=== PATIENT | male | born 1985 | race Caucasian/White ===

== ENCOUNTER 2024-05-15 22:56 | Emergency (ER) | payer OTHER, SELFPAY ==
--- NOTE | ~2024-05-15 | CT_ITS ---
EXAMINATION: CT ABDOMEN AND PELVIS WITHOUT CONTRAST CLINICAL INFORMATION: Left flank pain radiating to left lower quadrant. History of stones. COMPARISON: None available. TECHNIQUE: Multidetector volumetric imaging was performed from the superior aspect of the liver through the pubic symphysis. Sagittal and coronal reformatted images were obtained on the technologist's workstation. This CT examination was performed using dose optimization techniques as appropriate, variously including the following: *Automated exposure control *Adjustment of mA and/or kV according to patient size (this includes techniques or standardized protocols for targeted exams where dose is matched to indication/reason for exam; i.e. extremities or head) *Use of iterative reconstruction technique DLP: 663 mGy-cm FINDINGS: LUNG BASES: The lung bases are clear. The heart size is normal. No pericardial or pleural effusion seen. LIVER, GALLBLADDER, AND BILIARY TREE: The liver is normal in size, shape, and attenuation. No focal hepatic lesion or biliary ductal dilatation is present. The gallbladder is unremarkable with no evidence of radiopaque gallstones, gallbladder wall thickening, or obvious pericholecystic inflammatory changes. PANCREAS: Unremarkable. SPLEEN: Unremarkable. ADRENAL GLANDS: Unremarkable. KIDNEYS AND URETERS: The left kidney measures 11 cm in length and right kidney measures 9.5 cm in length.. There is an 8 mm nonobstructive calculi left UPJ with moderate hydronephrosis and slight enlargement of the kidney. BLADDER: Unremarkable. GASTROINTESTINAL TRACT: There is scattered stool and gas seen throughout the colon without any significant distention. The small bowel loops are normal caliber. Appendix is normal caliber. ABDOMINAL WALL: A small umbilical hernia containing fat is noted. LYMPH NODES: Normal. VASCULAR: Unremarkable. PELVIC VISCERA: Unremarkable. OSSEOUS STRUCTURES: No aggressive lytic or sclerotic process seen. CT/CT abdomen pelvis wo IV con IMPRESSION: 1. 8 mm obstructive calculi left UPJ with moderate hydronephrosis. 2. Mild constipation. Fleischner guidelines were followed. Electronically signed by: Joseph Ornelas MD 05/16/2024 08:21 AM [facility]
[2024-05-15 23:47] VITALS: BP 106/71; PULSE 65; RESP 16; TEMP 36.8; O2SAT 97; BMI 38.0
[2024-05-16 00:32] LABS: MANUAL DIFF FLAG NO
[2024-05-16 00:33] LABS: Basophils Percent Auto 0.3 % (0-2); Eosinophils Absolute Auto 0.2 X10*3/uL (0.0-0.4); Eosinophils Percent Auto 1.7 % (0-4); Hematocrit 40.4 % (42.0-52.0); Hemoglobin 14.2 g/dl (14.0-18.0); Imm Gran Abs Auto 0.03 X10*3/uL (0.00-0.03); Imm Gran Pct Auto 0.3 % (0.0-0.4); Lymphocytes Absolute Auto 2.1 X10*3/uL (1.2-4.9); Lymphocytes Percent Auto 20.5 % (20-40); Mean Corpuscular HGB Conc 35.1 g/dl (31.0-36.0); Mean Corpuscular Hemoglobin 29.1 pg (27.0-33.0); Mean Corpuscular Volume 82.8 fL (80.0-98.0); Mean Platelet Volume 9.8 fL (9.4-12.4); Monocytes Absolute Auto 1.2 X10*3/uL (0.1-1.2); Neutrophils Absolute Auto 6.7 x10*3/uL (2.0-8.3); Neutrophils Percent Auto 65.2 % (45-73); Platelet Count 233 X10*3/uL (160-400); Red Blood Count 4.88 X10*6/uL (4.60-5.80); Red Cell Distribution Width 12.3 % (11.0-16.0); White Blood Count 10.2 X10*3/uL (4.8-10.8)
[2024-05-16 00:50] LABS: Alanine Aminotransferase 46 U/L (0-40); Albumin Level 4.3 g/dL (3.5-5.0); Alkaline Phosphatase 108 U/L (39-117); Anion Gap 13 (12-20); Aspartate Amino Transferase 33 U/L (5-37); Bilirubin Total 0.2 mg/dL (0.0-1.0); Blood Urea Nitrogen 18 mg/dL (9-16); Calcium 9.5 mg/dL (8.4-10.2); Carbon Dioxide 25 mmol/L (22-29); Chloride 103 mmol/L (96-108); Creatinine Clr Calc Pharmacy 78.7; Estimated Glomerular Filt Rate > 60; Glucose Random 108 mg/dL (60-115); Lipase 25 U/L (8-78); Potassium 4.3 mmol/L (3.3-5.1); Sodium 137 mmol/L (135-145); Total Protein 7.3 g/dL (6.5-8.0)
[2024-05-16 05:54] VITALS: BP 118/84; PULSE 77; RESP 18; TEMP 36.8; O2SAT 98
[2024-05-16 06:20] LABS: Appearance Urine Clear; Color Urine Yellow; Glucose Urine UA Negative (Negative); Leukocyte Esterase Urine Negative (Negative); Nitrite Urine Negative (Negative); PH 5.5 (5.0-9.0); UMIC TRIGGER UACC YES; Urine Blood Small (1+) (Negative); Urine Ketones Negative (Negative); Urine Protein Negative (Neg-Trace)
[2024-05-16 06:23] LABS: Bacteria Urine None Seen (None Seen); Hyaline Casts Urine 0-2 /LPF (0-2); Squamous Epithelial Cell Urine 0-2 /HPF (0-2); WBC Urine 0-5 /HPF (0-5)
--- NOTE | 2024-05-16 07:06 | ED_ITS ---
HPI - General Adult General Chief complaint: General Medical Stated complaint: Kidney Pain Time Seen by Provider: 05/16/24 06:35 Source: patient, RN notes reviewed and old records reviewed Mode of arrival: ambulatory History of Present Illness ED Provider: Margarette Akbar PA-C [facility] narrative: 38-year-old male with a past medical history of renal stones presenting to ED complaining of left flank pain radiating to left lower quadrant x 1 week worsening last night. Reports pain is intermittent with associated nausea and vomiting today. Denies fever, chills, dysuria/hematuria Related Data Previous Rx's ?Medication ?Instructions ?Recorded ibuprofen 800 mg tablet 800 mg PO Q8H PRN pain #14 tabs 05/16/24 tamsulosin 0.4 mg capsule (Flomax) 0.4 mg PO DAILY #14 caps 05/16/24 Allergies Allergy/AdvReac Type Severity Reaction Status Date / Time No Known Allergies Allergy Verified 05/15/24 23:50 Review of Systems 2 Review of Systems: Yes all other systems are reviewed and are negative Constitutional: Constitutional: Reports as per HPI [facility] Past Medical History Attestation statement: The following information was validated with the patient. Source: old records reviewed Social History Social History Alcohol intake: former Smoked in Last 30 Days: No Use of substances other than those prescribed or required for medical reasons: No Advance Directives: No Advance Directives Information Provided: Yes Do you have a plan to hurt others: No Plan Physical Exam ED Vital Signs: Vital Signs - 24 hr 05/15/24 23:47 05/16/24 05:54 05/16/24 08:46 Temperature 98.3 F 98.2 F 98.0 F Pulse Rate 65 77 69 Respiratory Rate 16 18 18 Blood Pressure 106/71 118/84 108/74 Pulse Oximetry 97 98 97 Oxygen Delivery Method Room Air Room Air Room Air 05/16/24 09:36 05/16/24 10:26 Temperature 97.8 F Pulse Rate 61 Respiratory Rate 16 16 Blood Pressure 125/80 Pulse Oximetry 100 Oxygen Delivery Method Room Air BMI result Body Mass Index 38.0 Const General: cooperative, healthy appearing and no acute distress Orientation/consciousness: patient oriented x3 Limitations: no limitations HENMT Head: Yes normal to inspection and Yes atraumatic Ears: hearing grossly normal bilaterally General nose exam: Normal external nose present Face and sinus: Yes normal facial exam Eyes General: appearance normal, both eyes and all related structures EOM: EOMs intact bilaterally Neck Neck: Yes normal visual inspection and Yes no meningeal signs Resp Effort & Inspection: normal respiratory effort and no respiratory distress Cardio Rate: regular rate GI Inspection: Yes normal to inspection Palpation (GI): Soft to palpation, Tenderness to palpation present (GI) in the LLQ; with no rebound tenderness, no guarding and not rigid General: Yes CVA tenderness on the left Back/Spine/Pelvis Back: CVA tenderness Skin Rashes: no rashes Wounds: no wounds Neuro General: patient oriented x3, tone normal and no meningeal signs Cranial nerves: Yes CN's II-XII intact bilaterally Gait exam (Neuro): Normal gait present Extrem General: Yes normal to inspection Course Course Course Narrative: -[id number]--labs reassuring. UA negative however with RBCs CT abdomen pelvis wo IV con IMPRESSION: 1. 8 mm obstructive calculi left UPJ with moderate hydronephrosis. 2. Mild constipation. Fleischner guidelines were followed. > will consult Urology, Dr. Brothers >> case discussed with Dr. Brothers who states if pain is managed patient can be discharged home with likely outpatient procedure next week. If pain not controlled will need admission -1000--on re-evaluation patient reports pain is gone after IV morphine. Feels comfortable for discharge home with follow-up next week. Will supply with Dr. Brothers's information Results discussed with patient including worrisome signs and symptoms and strict return precautions, and when to return to the emergency department. They verbalized understanding and feel safe for discharge at this time. Medications Administered Discontinued Medications Generic Name Dose Route Start Last Admin Trade Name Neilq PRN Reason Stop Dose Admin Sodium Chloride 1,000 mls @ 999 mls/hr 05/16/24 07:00 05/16/24 08:54 Ns IV 05/16/24 08:00 Infused .Q1H1M MAGI Infusion Ketorolac Tromethamine 15 mg 05/16/24 06:57 05/16/24 07:44 Ketorolac Tromethamine 15 Mg/Ml Vial IVPUSH 05/16/24 06:58 15 mg ONCE ONE Administration Morphine Sulfate 2 mg 05/16/24 08:55 05/16/24 09:36 Morphine Sulfate 2 Mg/Ml Cartridge IVPUSH 05/16/24 08:56 2 mg ONCE ONE Administration Protocol Ondansetron HCl 4 mg 05/16/24 06:57 05/16/24 07:44 Ondansetron Hcl 4 Mg/2 Ml Vial IVPUSH 05/16/24 06:58 4 mg ONCE ONE Administration Medical Decision Making Medical Decision Making [facility] Narrative: 38-year-old male with a past medical history of renal stones presenting to ED complaining of left flank pain radiating to left lower quadrant x 1 week worsening last night. On exam vital signs stable, NAD, nontoxic appearing, left CVAT and left lower quadrant tenderness noted on exam, no rebound or guarding. Concern for renal stone vs pyelo. Rule out UTI. Lower suspicion for appendicitis/diverticulitis at this time Plan: Labs, UA, CT AP, IVF, pain control, re-evaluate Please refer to course for remaining clinical decision making, interpretation of labs/imaging results, and discussions with consultants and/or family members. Differential Diagnosis Differential Diagnoses: The differential diagnosis associated with the presentation includes As above Admission/Observation Consideration of admission/observation: Escalation of care including admission/observation considered Consult Healthcare Provider Management of the patient was discussed with: Floor Worker [place] Lab Data [facility] Lab Attestation statement: I reviewed the patient's lab results. 05/16/24 00:25 05/16/24 00:25 Labs: Lab Results 05/16/24 05/16/24 Range/Units 00:25 06:15 WBC 10.2 (4.8-10.8) X10*3/uL RBC 4.88 (4.60-5.80) X10*6/uL Hgb 14.2 (14.0-18.0) g/dl Hct 40.4 L (42.0-52.0) % MCV 82.8 (80.0-98.0) fL MCH 29.1 (27.0-33.0) pg MCHC 35.1 (31.0-36.0) g/dl RDW 12.3 (11.0-16.0) % Plt Count 233 (160-400) X10*3/uL MPV 9.8 (9.4-12.4) fL Immature Gran % (Auto) 0.3 (0.0-0.4) % Neut % (Auto) 65.2 (45-73) % Lymph % (Auto) 20.5 (20-40) % [place] % (Auto) 12.0 H (2-11) % Eos % (Auto) 1.7 (0-4) % Baso % (Auto) 0.3 (0-2) % Lymph # (Auto) 2.1 (1.2-4.9) X10*3/uL [place] # (Auto) 1.2 (0.1-1.2) X10*3/uL Eos # (Auto) 0.2 (0.0-0.4) X10*3/uL Baso # (Auto) 0.0 (0.0-0.2) X10*3/uL Abs Immat Gran (auto) 0.03 (0.00-0.03) X10*3/uL Absolute Neuts (auto) 6.7 (2.0-8.3) x10*3/uL Absolute Nucleated RBC 0.000 (0.0-0.012) X10*3/uL Nucleated RBC % (auto) 0.0 (0.0-0.2) /100WBC Sodium 137 (135-145) mmol/L Potassium 4.3 (3.3-5.1) mmol/L Chloride 103 (96-108) mmol/L Carbon Dioxide 25 (22-29) mmol/L Anion Gap 13 (12-20) BUN 18 H (9-16) mg/dL Creatinine 1.34 (0.5-1.4) mg/dL Estim Creat Clear Calc 78.7 Estimated GFR > 60 Random Glucose 108 (60-115) mg/dL Calcium 9.5 (8.4-10.2) mg/dL Magnesium 2.2 (1.6-2.6) mg/dL Total Bilirubin 0.2 (0.0-1.0) mg/dL AST 33 (5-37) U/L ALT 46 H (0-40) U/L Alkaline Phosphatase 108 (39-117) U/L Total Protein 7.3 (6.5-8.0) g/dL Albumin 4.3 (3.5-5.0) g/dL Lipase 25 (8-78) U/L Urine Color Yellow Urine Appearance Clear Urine pH 5.5 (5.0-9.0) Ur Specific [place] 1.010 (1.005-1.025) Urine Protein Negative (Neg-Trace) mg/dL Urine Glucose (UA) Negative (Negative) mg/dL Urine Ketones Negative (Negative) mg/dL Urine Blood Small (1+) H (Negative) Urine Nitrite Negative (Negative) Ur Leukocyte Esterase Negative (Negative) Urine RBC 6-10 H (0-2) /HPF Urine WBC 0-5 (0-5) /HPF Ur Squamous Epith Cells 0-2 (0-2) /HPF Urine Bacteria None Seen (None Seen) Hyaline Casts 0-2 (0-2) /LPF Independent Interpretation I performed an independent interpretation of an: CT Scan Radiology Impression Discussion of test interpretation with radiology: I have reviewed the radiologist's reading. External Record Review External record reviewed: Inpatient record, Office record, Outpatient record, Prior outpatient labs, Prior outpatient radiology, Primary care record and Outside ED record Tests considered The following testing was considered but not selected: As above Prescription Management I considered prescription management with: Pain Medication Chronic Conditions Patient?s care impacted by: Other Social Determinants Patient?s care significantly limited by Social Determinants of Health including: Other Social Determinant of Health Discharge Plan Discharge Clinical Impression: Obstruction of left ureteropelvic junction (UPJ) due to stone Patient Disposition: Home, Self-Care Instructions: Ureteral Stones (ED) Additional Instructions: You have an 8 mm obstructive stone in your left UPJ with hydronephrosis This stone will likely not pass on its own Flomax will help dilate the ureter Smoot as an opiate pain medication, take only when pain is severe Ibuprofen will also help with pain/inflammation YOU NEED TO FOLLOW-UP WITH UROLOGY, CALL SATURDAY TO MAKE AN APPOINTMENT IF HER SYMPTOMS PERSIST/RECUR, PAIN IS UNBEARABLE, YOU HAVE NAUSEA/VOMITING OR DIFFICULTY URINATING OR FEVER RETURN TO THE ED IMMEDIATELY Prescriptions: New ibuprofen 800 mg tablet 800 mg PO Q8H PRN (Reason: pain) Qty: 14 0RF tamsulosin [Flomax] 0.4 mg capsule 0.4 mg PO DAILY Qty: 14 0RF Referrals: [facility] Services [Provider Group] - 2 days Interventions: ED Discharge Assessment Last Done: 05/16/24 10:26 Discharge Date/Time: 05/16/24 10:43 Print Language: Ivorian
[2024-05-16] MEDS: 0.9 % Sodium Chloride 1,000 ML 999 ML IV (07:41)
[2024-05-16] MEDS: Ketorolac Tromethamine 15 MG/ML VIAL IVPUSH (07:44)
[2024-05-16] MEDS: ondansetron HCL 4 MG/2 ML VIAL IVPUSH (07:44)
[2024-05-16 08:34] LABS: Magnesium 2.2 mg/dL (1.6-2.6)
[2024-05-16 08:46] VITALS: BP 108/74; PULSE 69; RESP 18; TEMP 36.7; O2SAT 97
[2024-05-16 09:36] VITALS: RESP 16
[2024-05-16] MEDS: Morphine Sulfate 2 MG/ML CARTRIDGE IVPUSH (09:36)
[2024-05-16 10:26] VITALS: BP 125/80; PULSE 61; RESP 16; TEMP 36.6; O2SAT 100
== END 2024-05-16 10:43 | disposition home or self-care (01) ==
PROVIDERS: Physician Assistant; Emergency Provider Emergency Medicine
DX: N13.2 Hydronephrosis with renal and ureteral calculous obstruction (principal); R11.2 Nausea with vomiting, unspecified
CPT/HCPCS: 36415; 74176; 80053; 81001; 83690; 83735; 85025; 96361; 96374; 96375; 99284; J1885; J2270; J2405

== ENCOUNTER → 2024-05-19 10:00 | Outpatient (BNVA) | payer OTHER, SELFPAY | PROVIDERS: Visit Provider Urology ==

== ENCOUNTER 2024-05-21 08:41 | Outpatient (AMB) | payer OTHER, SELFPAY ==
--- NOTE | 2024-05-21 08:44 | A.OFFVIS_ITS ---
Intake Visit Reasons: obstructing stone r/s Intake Note: Patient is present for OBSTRUCTING STONE Urology Medication:TAMSULOSIN Antibiotic Allergy:NONE Blood Thinner:NONE [place] Supervisor Required: No Allergies No Known Allergies Allergy (Verified 05/21/24 08:47) HPI Comments Details: Jesus is a pleasant [place] male. He is seen for the following urologic conditions. - ureteric calculus Nephrolithiasis Emergency presentation with left sided stone CT scan - There is an 8 mm nonobstructive calculi left UPJ with moderate hydronephrosis and slight enlargement of the kidney. Schedule ESWL [facility] Social History Alcohol intake: former Review of Systems Const Denies chills and Denies fever(s) Card Reports no additional complaints and Denies syncope Resp Denies cough GI Denies abdominal pain and Denies heartburn Reports as per HPI and Denies change in libido Neuro Denies syncope Psych Denies change in libido Endo Denies change in libido Physical Exam Const General: cooperative, healthy appearing, comfortable and no acute distress Orientation/consciousness: patient oriented x3 HEENT Face and sinus: Yes normal facial exam Mouth: moist mucous membranes Neck Neck: Yes normal visual inspection, Yes full ROM and Yes trachea midline Chest Chest palpation & inspection: normal inspection of the chest Resp Effort & Inspection: normal respiratory effort, able to speak in complete sentences and no respiratory distress GI Inspection: Yes normal to inspection Back/Spine/Pelvis Cervical Spine: normal cervical lordosis Thoracic/Lumbar Spine: thoracic and lumbar spine normal to inspection Skin General skin exam: no rashes or lesions noted Neuro General: patient oriented x3, gait normal, tone normal and moves all extremities Extrem General: Yes normal to inspection and Yes capillary refill normal Results AMB Urinalysis, Automated UA Leukoctes 0 Emmanuel/uL Last Edit by FRANSICO Gaona on 05/21/24 09:35 UA Nitrite Negative Last Edit by FRANSICO Gaona on 05/21/24 09:35 UA Urobilinogen 0.2 mg/dL Last Edit by FRANSICO Gaona on 05/21/24 09:3 5 UA Protein 0 mg/dL Last Edit by FRANSICO Gaona on 05/21/24 09:35 UA pH 7.5 Last Edit by FRANSICO Gaona on 05/21/24 09:35 UA Blood 0 Al/uL Last Edit by FRANSICO Gaona on 05/21/24 09:35 UA Specific [place] 1.015 Last Edit by FRANSICO Gaona on 05/21/24 09: 35 UA Ketone Negative Last Edit by FRANSICO Gaona on 05/21/24 09:35 UA Bilirubin 0 mg/dL Last Edit by FRANSICO Gaona on 05/21/24 09:35 UA Glucose 0 mg/dL Last Edit by FRANSICO Gaona on 05/21/24 09:35 Results Reviewed Results Reviewed: Laboratory Last Values Urine pH (Auto) 7.5 05/21/24 09:34 Specific [place] (Auto) 1.015 05/21/24 09:34 Urine Protein (Auto) 0 mg/dL 05/21/24 09:34 Glucose (UA)(Auto) 0 mg/dL 05/21/24 09:34 Urine Ketones (Auto) Negative 05/21/24 09:34 Urine Blood (Auto) 0 Al/uL 05/21/24 09:34 Urine Nitrite (Auto) Negative 05/21/24 09:34 Urine Bilirubin (Auto) 0 mg/dL 05/21/24 09:34 Urine Urobilinogen (Auto) 0.2 mg/dL 05/21/24 09:34 Leukocyte Esterase (Auto) 0 Emmanuel/uL 05/21/24 09:34 Assessment & Plan Assessment & Plan (1) Ureteric stone: Code(s): N20.1 - Calculus of ureter Category: Medical Plan Extracorporeal Shock Wave Lithotripsy We discussed the nature of the decision and reasonable alternatives for performing the above surgery. Interventions include chemical dissolution, ESWL, ureteroscopy with laser lithotripsy and stent placement, PCNL. Options such as medical therapy were discussed. The relative uncertainties and benefits related to each alternate procedure were adequately discussed. General surgical risks including, but not limited to, pain, bleeding, infection, myocardial infarction, pulmonary embolus, deep vein thrombosis and cerebrovascular accident which may result in further hospitalization were discussed. Full disclosure of the procedure as well as all major risks, benefits and complications were discussed including but not limited to risks of bleeding, injury to the kidney with hematoma or dominga-hematoma, failure to fragments stone, potential for ureteric obstruction from stone passage and need for secondary procedures. There is a small long-term risk of hypertension and a question isabel of diabetes. Success rate of fragmentation and passage is approximately 70- 75%. This is compared to the risks and benefits for ureteroscopy which has a higher success rate but is a more invasive procedure. The success rate of the procedure was discussed. Success of the procedure in the short-term does not necessarily guarantee that long-term success will be maintained. Suitable follow up will need to be maintained. The patient showed understanding of the discussion as well as the typical recovery time, and the outpatient nature of this procedure. Opportunity was given for questions. Repeat-back protocol used to confirm understanding. They wish to proceed with left ESWL Orders: Orders AMB Urinalysis Automated Today Z13.9 - Encounter for screening, unspecified Patient Instructions: Imaging studies, laboratory and physical exam results were discussed and reviewed in detail. No major barriers to patient understanding were identified. An opportunity to ask questions regarding the treatment plan was provided. All questions were answered. The patient expressed understanding and agreement with the above treatment plan. The patient is aware they should contact our office by phone for worsening of their current condition or the appearance of new urologic symptoms. Compliance is encouraged with any medications and followup testing that is ordered. It is a privilege to participate in the urologic care of your patient. If you have any questions or concerns regarding treatment for the above conditions, or other urologic issues, please do not hesitate to contact me. The office telephone contact is [phone]. This note is constructed using voice recognition software. While every effort has been made to ensure accuracy fisher terrapin errors may have been included. Yours sincerely, Dr Akash Brothers MD, [facility] - Urology Providers of Expert, Compassionate Care for the Genitourinary System Coding Level of Care Code New Pt Level 4 (60779) Diagnoses Ureteric stone N20.1
== END 2024-05-21 09:18 | disposition home or self-care (01) ==
PROVIDERS: Visit Provider Urology
DX: Z13.9 Encounter for screening, unspecified (principal); N20.1 Calculus of ureter
CPT/HCPCS: 99204

== ENCOUNTER → 2024-05-21 08:41 | Outpatient (BNVA) | payer OTHER, SELFPAY | PROVIDERS: Visit Provider Urology | DX: N20.1 Calculus of ureter (principal) | CPT/HCPCS: 81003 ==